=== PATIENT | male | born 1965 | race Caucasian/White ===

== ENCOUNTER 2017-09-04 08:54 | Inpatient (IN) | payer BC ==
--- NOTE | 2017-09-04 09:15 | ED ---
Psych HPI - General Chief Complaint: Psychiatric Symptoms Stated Complaint: Suicidal Time Seen by Provider: 09/04/17 09:03 Source: patient, RN notes reviewed, old records reviewed Mode of arrival: ambulatory - History of Present Illness Initial Comments: This is a 52-year-old male presents to the emergency department with suicidal ideation. Plans to jump out of his building or drugs car off the road or use a gun to shoot himself. Patient states that he got an argument with his boss which isn't resolved him losing his job. He has been dealing with depression and anxiety for the past 30 years. He reports that yesterday evening he was in his yard after a long day of work and after the argument with his boss and saw his stepson radiating in the tree. His stepson to commit suicide approximately 7 years ago. He also reports he has deep remorse because he was unable to be there when his father last year. He states that all these things combined been causing him to be more stressed and suicidal. He does have a family support system. He does take multiple medications including Lamictal and Seroquel and Celexa. He does see a psychiatrist Dr. Harding and a therapist to these been seen for the past 2 years. - Related Data Home Medications Medication Instructions Recorded Confirmed [place] Carbonate 1,200 mg PO HS 11/24/13 09/04/17 Citalopram Hydrobromide [CeleXA] 40 mg PO DAILY 09/04/17 09/04/17 QUEtiapine FUMARATE [SEROquel] 300 mg PO HS 09/04/17 09/04/17 QUEtiapine [SEROquel] 50 mg PO DAILY 09/04/17 09/04/17 lamoTRIgine [LaMICtal] 100 mg PO DAILY 09/04/17 09/04/17 Allergies Allergy/AdvReac Type Severity Reaction Status Date / Time No Known Allergies Allergy Verified 09/04/17 09:32 Review of Systems ROS Statement: Those systems with pertinent positive or pertinent negative responses have been documented in the HPI. ROS Other: All systems not noted in ROS Statement are negative. Past Medical History Past Medical History: COPD, Osteoarthritis (OA) Additional Past Medical History / Comment(s): 04/22/14 Pt presented to [facility] ER with c/o chest pain that felt like someone was standing on his chest and throat this AM. Pain radiated from mid chest up into neck. He felt like it was difficult to swallow. He took a co-workers NTG SL and pain went entirely away after about 15mins. He has had 3 previous episodes of this type pain this past month. He also stated that he came into [facility] for similiar problem one year ago but left before being worked up due to having missed his psych meds. 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 Past Anesthesia/Blood Transfusion Reactions: No Reported Reaction Past Psychological History: Bipolar Smoking Status: Current every day smoker Past Alcohol Use History: None Reported Past Drug Use History: Marijuana - Past Family History Father Family Medical History: Diabetes Mellitus, Myocardial Infarction ([place]), Renal Disease Additional Family Medical History / Comment(s): Father on dialysis. Mother Family Medical History: AFIB General Exam - General Exam Comments Initial Comments: 52-year-old male. Limitations: no limitations General appearance: alert, in no apparent distress Head exam: Present: atraumatic, normocephalic, normal inspection Eye exam: Present: normal appearance, PERRL, EOMI. Absent: scleral icterus, conjunctival injection, periorbital swelling ENT exam: Present: normal exam, mucous membranes moist Neck exam: Present: normal inspection. Absent: tenderness, meningismus, lymphadenopathy Respiratory exam: Present: normal lung sounds bilaterally. Absent: respiratory distress, wheezes, rales, rhonchi, stridor Cardiovascular Exam: Present: regular rate, normal rhythm, normal heart sounds. Absent: systolic murmur, diastolic murmur, rubs, gallop, clicks GI/Abdominal exam: Present: soft, normal bowel sounds. Absent: distended, tenderness, guarding, rebound, rigid Back exam: Present: normal inspection Neurological exam: Present: alert, oriented X3, CN II-XII intact Psychiatric exam: Present: depressed, suicidal ideation. Absent: normal affect , normal mood (Patient is tearful and depressed. States he is suicidal.) Skin exam: Present: warm, dry, intact, normal color. Absent: rash Course Vital Signs 09/04/17 08:57 Temperature 97.5 F L Pulse Rate 70 Respiratory 18 Rate Blood Pressure 144/85 O2 Sat by Pulse 100 Oximetry Medical Decision Making - Medical Decision Making 52 year-old male presents with suicidal ideations. Multiple plans including shooting self with gun. Worse after arguement with boss. Patient is medically clear this time for violation EPS. Evaluated by EPS and deemed that Patient will benefit from admission. Patient signs and voluntarily. I did order a lithium level. - Lab Data Result diagrams: 09/04/17 10:36 Lab Results 09/04/17 Range/Units 10:36 WBC 7.3 (3.8-10.6) k/uL RBC 4.33 (4.30-5.90) m/uL Hgb 13.5 (13.0-17.5) gm/dL Hct 39.6 (39.0-53.0) % MCV 91.6 (80.0-100.0) fL MCH 31.2 (25.0-35.0) pg MCHC 34.1 (31.0-37.0) g/dL RDW 12.6 (11.5-15.5) % Plt Count 230 (150-450) k/uL Disposition Clinical Impression: Depression, Suicidal ideation Disposition: TRANSFER TO PSYCH HOSP/UNIT Condition: Stable Is patient prescribed a controlled substance at d/c from ED?: No When asked, does pt state using other controlled substances?: No If prescribed controlled substance>3 days was MAPS reviewed?: No If opioid is for acute pain is fill amount 7 days or less?: No If Rx opioid, was Start Talking consent form obtained?: No Referrals: Micaela Bernardo MD [Primary Care Provider] - 1-2 days Time of Disposition: 10:52
[2017-09-04] MEDS ORDERED: NICOTINE 21MG/24HR PATCH TRANSDERM STA (09:25)
[2017-09-04 10:45] LABS: HCT 39.6 % (39.0-53.0); HGB 13.5 gm/dL (13.0-17.5); MCH 31.2 pg (25.0-35.0); MCHC 34.1 g/dL (31.0-37.0); MCV 91.6 fL (80.0-100.0); Mean Platelet Volume 7.1; Platelet Count 230 k/uL (150-450); RBC 4.33 m/uL (4.30-5.90); RDW 12.6 % (11.5-15.5); WBC 7.3 k/uL (3.8-10.6)
[2017-09-04 10:57] LABS: Calcium 9.6 mg/dL (8.4-10.2); Lithium 0.8 mmol/L; Potassium 4.2 mmol/L (3.5-5.1)
[2017-09-04 10:59] LABS: Amphetamine Screen,Urine Not Detected (NotDetected); Barbiturate Screen,Urine Not Detected (NotDetected); Benzodiazepines Screen,Urine Not Detected (NotDetected); Cocaine Screen,Urine Not Detected (NotDetected); Methadone Screen, Urine Not Detected (NotDetected); Opiate Screen,Urine Not Detected (NotDetected); Oxycodone Screen, Urine Not Detected (NotDetected); Phencyclidine Screen,Urine Not Detected (NotDetected); Tricyclic Antidepressant,Urine Detected (NotDetected); Urn Cannabinoid Scrn Detected (NotDetected)
[2017-09-04] MEDS ORDERED: MAGNESIUM HYDROXIDE 2,400 MG/10 ML CUP PO PRN (11:47)
[2017-09-04] MEDS ORDERED: MAG HYDROX/AL HYDROX/SIMETH 30 ML CUP PO PRN (11:47)
[2017-09-04] MEDS ORDERED: ZIPRASIDONE 20 MG VIAL IM PRN (11:47)
[2017-09-04] MEDS ORDERED: ACETAMINOPHEN TAB 325 MG TAB PO PRN (11:47)
[2017-09-04] MEDS: NICOTINE 21MG/24HR PATCH TRANSDERM SCH (14:12)
[2017-09-04] MEDS: lamoTRIgine 100 MG TAB PO SCH (14:12)
[2017-09-04] MEDS: CITALOPRAM HYDROBROMIDE 20 MG TAB PO SCH (14:12)
[2017-09-04] MEDS: QUEtiapine 100 MG TAB PO SCH (20:10)
[2017-09-04] MEDS: LITHIUM CARBONATE 300 MG CAP PO SCH (20:10)
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
[2017-09-05] MEDS: QUEtiapine 50 MG TAB PO SCH (08:36)
[2017-09-05] MEDS: lamoTRIgine 100 MG TAB PO SCH (08:36)
[2017-09-05] MEDS: CITALOPRAM HYDROBROMIDE 20 MG TAB PO SCH (08:36)
[2017-09-05] MEDS: NICOTINE 21MG/24HR PATCH TRANSDERM SCH (08:36)
[2017-09-05] MEDS ORDERED: CITALOPRAM HYDROBROMIDE 20 MG TAB PO SCH (09:00)
[2017-09-05 09:11] LABS: T4, Free (Free Thyroxine) 0.75 ng/dL (0.78-2.19)
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
[2017-09-05] MEDS: QUEtiapine 100 MG TAB PO SCH (21:11)
[2017-09-05] MEDS: LITHIUM CARBONATE 300 MG CAP PO SCH (21:11)
[2017-09-06] MEDS: LEVOTHYROXINE 25 MCG TAB PO SCH (06:22)
[2017-09-06] MEDS: NICOTINE 21MG/24HR PATCH TRANSDERM SCH (09:08)
[2017-09-06] MEDS: CITALOPRAM HYDROBROMIDE 20 MG TAB PO SCH (09:08)
[2017-09-06] MEDS: lamoTRIgine 100 MG TAB PO SCH (09:08)
[2017-09-06] MEDS: QUEtiapine 50 MG TAB PO SCH (09:08)
--- NOTE | 2017-09-06 10:57 | P.PN ---
Progress Note - Text Interval history: The patient is found in group he follows me to an interview room. He reports his mood is much improved. He was able to sleep throughout the night. Appetite is stable he is attending groups. He states that he has a new perspective on things as several people here have much worse than him. Social work was able to contact his . She provided collateral information. The patient does not wish to change his psychotropic medication. He was placed on Synthroid 25 g daily due to the elevated TSH and low free T4. Mental status exam: The patient is a tall male appearing his stated age. He is pleasant and cooperative. He states his mood is much improved. He is reporting no hopelessness thinking no suicidal or homicidal ideation intent or plan. He is endorsing no auditory or visual hallucinations or any specific delusions. Thought process is linear he demonstrates no tangential thinking loose associations or flight of ideas. He does not appear hypomanic or manic. He demonstrates no abnormal involuntary movements he demonstrates no verbal or physical aggressiveness. He remains oriented to person place and date. Affect is appropriately expressive any peer's euthymic. Plan: The patient will continue on his current medications. We discussed Depakote as an alternative to lithium but he would prefer to manage this with his outpatient psychiatrist. He is hoping to reengage in outpatient therapy as well. Social work will arrange a support meeting. If he remains clinically stable and there is no perceived acute safety risk we will consider discharging him tomorrow.
[2017-09-06] MEDS: QUEtiapine 100 MG TAB PO SCH (21:34)
[2017-09-06] MEDS: LITHIUM CARBONATE 300 MG CAP PO SCH (21:34)
[2017-09-07] MEDS: LEVOTHYROXINE 25 MCG TAB PO SCH (05:48)
[2017-09-07 06:38] VITALS: BP 132/77; PULSE 58; RESP 20; TEMP 97.9
[2017-09-07] MEDS: NICOTINE 21MG/24HR PATCH TRANSDERM SCH (09:08)
[2017-09-07] MEDS: QUEtiapine 50 MG TAB PO SCH (09:08)
[2017-09-07] MEDS: CITALOPRAM HYDROBROMIDE 20 MG TAB PO SCH (09:08)
[2017-09-07] MEDS: lamoTRIgine 100 MG TAB PO SCH (09:08)
--- NOTE | 2017-09-07 11:40 | P.DS ---
Providers Date of admission: 09/04/17 10:56 Expected date of discharge: 09/07/17 Attending physician: Jeanmarie Reeves Consults: 09/04/17 11:47 Consult Physician Routine Consulting Provider: Bailey Be Consult Reason/Comments: H & P and medical care Do you want consulting provider notified?: Yes Primary care physician: Micaela Bernardo - Discharge Diagnosis(es) (1) Depression Current Visit: Yes Status: Acute Priority: High (2) Cannabis use disorder, moderate, dependence Current Visit: Yes Status: Acute Priority: Medium Hospital Course: Brief summary of admission note: This patient is a 52-year-old male who was admitted to the mental health unit through the emergency room for acute suicidal ideation. The patient had presented with a plan of shooting himself or driving his vehicle into a tree. It appears that prior to this admission he had had a verbal altercation again with his boss. The patient feels as though he is being treated unfairly at work and left. He reported feeling hopeless and acutely depressed and then will live anymore. He described having to continue processing several losses including a stepson 7 years ago the loss of a good friend and his father 1 year ago. For full details please refer to my psychiatric evaluation dated 09/05/2017. Summary of hospital course: The patient was admitted to the mental health unit voluntarily. We reviewed his presenting symptoms and medication options. The patient stated that he felt very comfortable with his outpatient psychiatrist prescribing his medicine and he did not want his psychotropic medication changed while here. He was continued on Celexa Lamictal lithium and Seroquel as written by Dr. Harding. With lab work the lithium level was 0.8, his kidney function was normal however his thyroid function was found to be abnormally low. Specifically his free T4 was low and his TSH was high. Internal medicine saw the patient for routine history and physical exam and they initiated Synthroid 25 g daily. The patient indicated that he was experiencing some clinical signs of hypothyroidism most notably constipation. We discussed Depakote as an alternative to lithium for stabilization of mood but he prefers to address this with Dr. Harding. The patient attended groups he was cooperative and pleasant he demonstrated no agitated behavior. Social work did make contact with the patient's via phone. She confirmed that the firearms were removed from the home. The patient states that he voluntarily had his friend remove those even prior to coming to the hospital. Mental status exam: The patient is a tall thin male. He wears a rojas. He is dressed in his own clothing. He is pleasant and cooperative during the session. He reports a complete resolution of any suicidal ideation. He states he has no suicidal or homicidal ideation intent or plan. He reports he no longer feels hopeless. He is decided that he will be off of work for 2 weeks and then he will return on a trial basis. He is reporting no auditory or visual hallucinations he is reporting no specific delusions there is no observed evidence of psychosis. He does not appear hypomanic or manic at this time or at any time during the hospitalization. Thought process is linear he demonstrates no tangential thinking loose associations or flight of ideas. Insight and judgment grossly intact. He is oriented to person place and date. He demonstrates no verbal or physical aggressiveness he demonstrates no abnormal involuntary movements. He demonstrates future oriented thinking and is motivated for discharge today. Impressions 1. Depression unspecified rule out bipolar depression, rule out major depressive disorder, cannabis use disorder 2. Ongoing grief and loss, work related stressors Plan: The patient will be discharged home today from the mental health unit. Social work will confirm his appointments with his therapist and psychiatrist at [facility]. He will continue on Celexa 40 mg daily Lamictal 100 mg daily Synthroid 25 g daily lithium 1200 mg at bedtime Seroquel 50 mg daily 300 mg at bedtime. He will discussed Depakote as an alternative to lithium with his outpatient psychiatrist. It is likely that the Depakote could replace the lithium and the Lamictal if it demonstrated appropriate efficacy. It is likely he would no longer need the Synthroid if the lithium is discontinued but he is encouraged to have that monitored with blood work and consult with either Dr. Harding or his primary care physician on that matter. He is instructed to abstain from any use of marijuana he does not wish to participate in any formal treatment for his marijuana use. He can address this further with his outpatient mental health clinicians. There is no imminent safety risk he is appropriate for transition back to outpatient care. He is instructed to return to the hospital with any acute safety issues. Patient Condition at Discharge: Stable Plan - Discharge Summary Discharge Rx Participant: No New Discharge Prescriptions: New Levothyroxine Sodium [Synthroid] 25 mcg PO DAILY@0630 #30 tab Nicotine 21Mg/24Hr Patch [Habitrol] 1 patch TRANSDERM DAILY #10 patch Continue Citalopram Hydrobromide [CeleXA] 40 mg PO DAILY #30 tablet lamoTRIgine [LaMICtal] 100 mg PO DAILY #30 tab [place] Carbonate 1,200 mg PO HS #60 cap QUEtiapine [SEROquel] 50 mg PO DAILY #30 tab QUEtiapine FUMARATE [SEROquel] 300 mg PO HS #30 tablet Discharge Medication List Citalopram Hydrobromide [CeleXA] 40 mg PO DAILY #30 tablet 09/07/17 [Rx] Levothyroxine Sodium [Synthroid] 25 mcg PO DAILY@0630 #30 tab 09/07/17 [Rx] [place] Carbonate 1,200 mg PO HS #60 cap 09/07/17 [Rx] Nicotine 21Mg/24Hr Patch [Habitrol] 1 patch TRANSDERM DAILY #10 patch 09/07/17 [ Rx] QUEtiapine FUMARATE [SEROquel] 300 mg PO HS #30 tablet 09/07/17 [Rx] QUEtiapine [SEROquel] 50 mg PO DAILY #30 tab 09/07/17 [Rx] lamoTRIgine [LaMICtal] 100 mg PO DAILY #30 tab 09/07/17 [Rx] Follow up Appointment(s)/Referral(s): Micaela Bernardo MD [Primary Care Provider] - 1-2 days
== END 2017-09-07 14:01 | disposition home or self-care (01) | DRG 881 ==
LOC: EC 08:54 → 3MHU 10:56
PROVIDERS: ADMIT Psychiatry & Neurology Psychiatry; ATTEND Psychiatry & Neurology Psychiatry
DX: F32.9 Major depressive disorder, single episode, unspecified (principal); R45.851 Suicidal ideations; F12.20 Cannabis dependence, uncomplicated; F17.210 Nicotine dependence, cigarettes, uncomplicated; F41.9 Anxiety disorder, unspecified; J44.9 Chronic obstructive pulmonary disease, unspecified; M19.90 Unspecified osteoarthritis, unspecified site; Z79.899 Other long term (current) drug therapy; Z91.5 Personal history of self-harm; Z90.49 Acquired absence of other specified parts of digestive tract; Z62.810 Personal history of physical and sexual abuse in childhood; F43.21 Adjustment disorder with depressed mood; Z83.3 Family history of diabetes mellitus; Z82.49 Family history of ischemic heart disease and other diseases of the circulatory system; Z84.1 Family history of disorders of kidney and ureter
CPT/HCPCS: 36415; 80048; 80178; 80306; 82075; 84439; 84443; 85027; 99285

== ENCOUNTER 2017-12-21 07:00 | Emergency (ER) | payer BC ==
[2017-12-21 07:06] VITALS: PULSE 67; TEMP 98.9
--- NOTE | 2017-12-21 07:43 | ED ---
Psych HPI - General Chief Complaint: Psychiatric Symptoms Stated Complaint: Mental Health Time Seen by Provider: 12/21/17 07:20 Source: patient, RN notes reviewed Mode of arrival: ambulatory - History of Present Illness Initial Comments: This is a 52-year-old male with a long history of bipolar disorder also history of borderline personality disorder who states for past week or so he still very depressed and suicidal in spite of taking his medications. He had thought of cutting one of his arteries in his groin or possibly jumping of his dear stand or radiated into a truck with his car 100 miles an hour. Nothing in particular other than "life" has set this off. He states he has been taking his medications as directed MD Complaint: suicidal ideation, feels depressed - Related Data Home Medications Medication Instructions Recorded Confirmed lamoTRIgine [LaMICtal] 100 mg PO HS 12/21/17 12/21/17 Previous Rx's Medication Instructions Recorded Citalopram Hydrobromide [CeleXA] 40 mg PO DAILY #30 tablet 09/07/17 [place] Carbonate 1,200 mg PO HS #60 cap 09/07/17 QUEtiapine FUMARATE [SEROquel] 300 mg PO HS #30 tablet 09/07/17 QUEtiapine [SEROquel] 50 mg PO DAILY #30 tab 09/07/17 Allergies Allergy/AdvReac Type Severity Reaction Status Date / Time No Known Allergies Allergy Verified 12/21/17 08:16 Review of Systems ROS Statement: Those systems with pertinent positive or pertinent negative responses have been documented in the HPI. ROS Other: All systems not noted in ROS Statement are negative. Past Medical History Past Medical History: COPD, Osteoarthritis (OA) Additional Past Medical History / Comment(s): Arthritis multiple joints, recent cortisone injections in R elbow, occasional back pain. 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 Past Anesthesia/Blood Transfusion Reactions: No Reported Reaction Past Psychological History: Bipolar Smoking Status: Never smoker Past Alcohol Use History: None Reported Past Drug Use History: Marijuana - Past Family History Father Family Medical History: Diabetes Mellitus, Myocardial Infarction (PA), Renal Disease Additional Family Medical History / Comment(s): Father is at the age of 80yrs. He had to have dialysis. He had a PA at the age of 30yrs. Mother Family Medical History: AFIB, Diabetes Mellitus, Hypertension Additional Family Medical History / Comment(s): Mother is about 75 or 76yrs old. General Exam - General Exam Comments Initial Comments: This is a well-developed well-nourished awake alert oriented 3 male Limitations: no limitations General appearance: alert, in no apparent distress Head exam: Present: atraumatic, normocephalic, normal inspection Eye exam: Present: normal appearance, PERRL, EOMI. Absent: scleral icterus, conjunctival injection, periorbital swelling ENT exam: Present: normal exam, mucous membranes moist Neck exam: Present: normal inspection. Absent: tenderness, meningismus, lymphadenopathy Respiratory exam: Present: normal lung sounds bilaterally. Absent: respiratory distress, wheezes, rales, rhonchi, stridor Cardiovascular Exam: Present: regular rate, normal rhythm, normal heart sounds. Absent: systolic murmur, diastolic murmur, rubs, gallop, clicks GI/Abdominal exam: Present: soft, normal bowel sounds. Absent: distended, tenderness, guarding, rebound, rigid Extremities exam: Present: normal inspection, full ROM, normal capillary refill. Absent: tenderness, pedal edema, joint swelling, calf tenderness Back exam: Present: normal inspection Neurological exam: Present: alert, oriented X3, CN II-XII intact Psychiatric exam: Present: depressed, flat affect, suicidal ideation Skin exam: Present: warm, dry, intact, normal color. Absent: rash Course Vital Signs 12/21/17 12/21/17 07:02 15:00 Temperature 98.9 F Pulse Rate 67 67 Respiratory 16 18 Rate Blood Pressure 144/84 144/85 O2 Sat by Pulse 99 99 Oximetry Medical Decision Making - Medical Decision Making The patient was evaluated by psychiatric service he was petitioned and I did to his certification. Patient was be transferred to [facility]. I did also did order sedation for the patient she was becoming very irate and threatening. - Lab Data Lab Results 12/21/17 12/21/17 Range/Units 08:20 08:20 Urine Opiates Screen Not Detected (NotDetected) Ur Oxycodone Screen Not Detected (NotDetected) Urine Methadone Screen Not Detected (NotDetected) Ur Propoxyphene Screen Not Detected (NotDetected) Ur Barbiturates Screen Not Detected (NotDetected) U Tricyclic Antidepress Detected H (NotDetected) Ur Phencyclidine Scrn Not Detected (NotDetected) Ur Amphetamines Screen Not Detected (NotDetected) U Methamphetamines Scrn Not Detected (NotDetected) U Benzodiazepines Scrn Not Detected (NotDetected) [place] 1.1 mmol/L Urine Cocaine Screen Not Detected (NotDetected) U Marijuana (THC) Screen Detected H (NotDetected) Disposition Clinical Impression: Depression, Suicidal ideation Disposition: TRANSFER TO PSYCH HOSP/UNIT Condition: Stable Is patient prescribed a controlled substance at d/c from ED?: No Referrals: Micaela Bernardo MD [Primary Care Provider] - 1-2 days
[2017-12-21 08:50] LABS: Amphetamine Screen,Urine Not Detected (NotDetected); Barbiturate Screen,Urine Not Detected (NotDetected); Benzodiazepines Screen,Urine Not Detected (NotDetected); Cocaine Screen,Urine Not Detected (NotDetected); Methadone Screen, Urine Not Detected (NotDetected); Opiate Screen,Urine Not Detected (NotDetected); Oxycodone Screen, Urine Not Detected (NotDetected); Phencyclidine Screen,Urine Not Detected (NotDetected); Tricyclic Antidepressant,Urine Detected (NotDetected); Urn Cannabinoid Scrn Detected (NotDetected)
[2017-12-21] MEDS ORDERED: ZIPRASIDONE 20 MG VIAL IM STA (14:27)
[2017-12-21] MEDS ORDERED: LORazepam 2 MG/ML INJ IM STA (14:28)
[2017-12-21] MEDS ORDERED: CITALOPRAM HYDROBROMIDE 20 MG TAB PO STA (14:35)
[2017-12-21] MEDS ORDERED: QUEtiapine 50 MG TAB PO STA (14:35)
[2017-12-21] MEDS ORDERED: lamoTRIgine 100 MG TAB PO STA (14:58)
[2017-12-21 15:00] VITALS: RESP 18
[2017-12-21 19:27] VITALS: BP 141/94
== END 2017-12-21 19:27 ==
LOC: EC 07:00
DX: F32.9 Major depressive disorder, single episode, unspecified (principal); R45.851 Suicidal ideations; F60.3 Borderline personality disorder; Z79.899 Other long term (current) drug therapy
CPT/HCPCS: 36415; 80178; 80306; 99285; 96372 ×2; J2060; J3486; 82075

== ENCOUNTER → 2018-06-04 | Outpatient (CLI) | payer OTHER ==
[2018-06-04 12:52] LABS: T4, Free (Free Thyroxine) 0.21 ng/dL (0.78-2.19)
== END | disposition home or self-care (01) ==
LOC: LABWHC1 11:40
PROVIDERS: ATTEND Internal Medicine
DX: E03.9 Hypothyroidism, unspecified (principal)
CPT/HCPCS: 36415; 84439; 84443

== ENCOUNTER → 2023-01-23 | Outpatient (CLI) | payer OTHER ==
--- NOTE | 2023-01-23 10:10 | MR ---
EXAMINATION TYPE: MR brain wo/w con DATE OF EXAM: 01/23/2023 COMPARISON: None HISTORY: Headaches TECHNIQUE: Multiplanar, multisequence images of the brain and brainstem is performed without and with IV contras t, utilizing 9 mL intravenous Gadavist . FINDINGS: Diffusion weighted images demonstrate no evidence of a recent infarct or other diffusion ab normality. There is I moderate degenerative change with numerous small focal areas of abnormal signal scattered throughout the white matter of bilateral cerebral hemispheres. Findings nonspecific but most typical remote white matter microvascular disease. Vertebrobasilar system is diminutive in size which can be associated with vertebrobasilar insufficiency. Posterior cerebral arteries likely originate from the anterior circulation. Midline structures demonstrate normal morphology. Low-lying cerebellar tonsils at the level of forame n magnum. No tonsillar beaking.. Post contrast images demonstrate no abnormal enhancement. The dural venous sinuses appear patent. Chronic sinusitis and the globes are intact. IMPRESSION: 1. Moderate degenerative and nonspecific white matter findings most typical of remote microvascular i schemic white matter change. 2. Mild chronic sinusitis. 3. Low-lying cerebellar tonsils at the level of foramen magnum, without evidence of tonsillar beaking or definitive Chiari malformation.
[2023-01-23 10:33] LABS: African American GFR (CKD) 52 (>60 ml/min/1.73 sqM); Albumin 4.4 g/dL (3.5-5.0); Anion Gap 8 mmol/L; Blood Urea Nitrogen 18 mg/dL (9-20); Calcium 9.8 mg/dL (8.4-10.2); Carbon Dioxide 25 mmol/L (22-30); Chloride 107 mmol/L (98-107); Glucose 87 mg/dL (74-99); Non-African American GFR(CKD) 45 (>60 ml/min/1.73 sqM); Phosphorus 3.3 mg/dL (2.5-4.5); Potassium 4.5 mmol/L (3.5-5.1); Sodium 140 mmol/L (137-145)
== END | disposition home or self-care (01) ==
LOC: RADMRIMAIN 08:31
PROVIDERS: ATTEND Internal Medicine
DX: R90.82 White matter disease, unspecified (principal); G93.89 Other specified disorders of brain; J32.9 Chronic sinusitis, unspecified; I67.82 Cerebral ischemia; R51.9 Headache, unspecified; G93.5 Compression of brain; N18.31 Chronic kidney disease, stage 3a
CPT/HCPCS: 80069; 70553; A9585

== ENCOUNTER → 2023-03-23 | Outpatient (CLI) | payer OTHER, MEDICARE ==
--- NOTE | 2023-03-23 12:18 | CT ---
EXAMINATION TYPE: CT sinus wo con DATE OF EXAM: 03/23/2023 COMPARISON: MRI brain January 23, 2023 HISTORY: maxillary sinusitis CT DLP: 636.4 mGycm. Automated Exposure Control for Dose Reduction was Utilized. TECHNIQUE: CT scan of the sinuses is performed without contrast, axial images are obtained, coronal r eformatted images are also reviewed. FINDINGS: The paranasal sinuses including the frontal, ethmoid, sphenoid, and maxillary sinuses bila terally remain well-aerated without abnormal opacification or suspicious air-fluid levels. The ostio meatal complex is patent bilaterally on the coronal images. Nasal septum is noted deviated slightly r ight of midline. Visualized portion of mastoid air cells show no abnormal opacification. There is soft tissue density suspicious for cerumen in the bilateral external auditory canals noted. The globes are intact bilate rally. Visualized brain parenchyma shows mild diffuse cerebral atrophy and chronic small vessel ische kelly change. Low-lying cerebellar tonsils redemonstrated. IMPRESSION: The sinuses remain clear and the ostiomeatal complex is patent bilaterally.
== END | disposition home or self-care (01) ==
LOC: RADCTMAIN 11:24
PROVIDERS: ATTEND Otolaryngology
DX: J32.0 Chronic maxillary sinusitis (principal)
CPT/HCPCS: 70486

== ENCOUNTER 2023-04-17 17:30 | Observation (INO) | payer OTHER, MEDICARE ==
--- NOTE | 2023-04-17 18:08 | XR ---
EXAMINATION TYPE: XR chest 2V DATE OF EXAM: 04/17/2023 COMPARISON: 04/22/2014 HISTORY: 57-year-old male with chest pain TECHNIQUE: PA and lateral views FINDINGS: The cardiomediastinal silhouette, aorta, and pulmonary vasculature are within normal limits. Mild hyp erinflation. Lungs and pleural spaces are clear. IMPRESSION: Mild hyperinflation may relate to depth of inspiration or underlying emphysema. Otherwise, no acute p rocess seen.
[2023-04-17 18:12] LABS: Basophils # (A) 0.1 k/uL (0-0.2); Basophils % (A) 1 %; Eosinophils # (A) 0.2 k/uL (0-0.7); Eosinophils % (A) 2 %; HCT 41.5 % (39.0-53.0); HGB 14.3 gm/dL (13.0-17.5); Lymphocytes # (A) 3.2 k/uL (1.0-4.8); Lymphocytes % (A) 36 %; MCH 32.3 pg (25.0-35.0); MCHC 34.6 g/dL (31.0-37.0); MCV 93.5 fL (80.0-100.0); Mean Platelet Volume 7.5; Monocytes # (A) 0.4 k/uL (0-1.0); Monocytes % (A) 4 %; Neutrophils # (A) 4.9 k/uL (1.3-7.7); Neutrophils % (A) 56 %; Platelet Count 251 k/uL (150-450); RBC 4.44 m/uL (4.30-5.90); RDW 12.1 % (11.5-15.5); WBC 8.8 k/uL (3.8-10.6)
[2023-04-17 18:17] LABS: INR 1.1 (<1.2); Partial Thromboplastin Time 25.4 sec (22.0-30.0); Prothrombin Time 11.6 sec (10.0-12.5)
[2023-04-17 18:20] LABS: ALT 16 U/L (4-49); AST 19 U/L (17-59); African American GFR (CKD) 52 (>60 ml/min/1.73 sqM); Albumin 4.2 g/dL (3.5-5.0); Alkaline Phosphatase 75 U/L (38-126); Anion Gap 8 mmol/L; Blood Urea Nitrogen 17 mg/dL (9-20); Calcium 9.1 mg/dL (8.4-10.2); Carbon Dioxide 23 mmol/L (22-30); Chloride 105 mmol/L (98-107); Glucose 131 mg/dL (74-99); Magnesium 1.9 mg/dL (1.6-2.3); Non-African American GFR(CKD) 45 (>60 ml/min/1.73 sqM); Sodium 136 mmol/L (137-145); Total Bilirubin 0.3 mg/dL (0.2-1.3); Total Protein 6.9 g/dL (6.3-8.2)
[2023-04-17] MEDS ORDERED: ONDANSETRON 4 MG/2 ML VIAL IVP PRN (20:21)
[2023-04-17] MEDS ORDERED: ASPIRIN 81 MG PO STA (20:21)
[2023-04-17] MEDS ORDERED: NITROGLYCERIN SL TABS 0.4 MG TAB SUBLINGUAL PRN (20:21)
[2023-04-17] MEDS ORDERED: NALOXONE 0.4 MG/ML 1 ML VIAL IV PRN (20:21)
[2023-04-17] MEDS ORDERED: MORPHINE SULFATE 4 MG/ML SYRINGE IV PRN (20:21)
--- NOTE | 2023-04-17 20:27 | ED ---
Chest Pain HPI - General Chief Complaint: Chest Pain Stated Complaint: Abn EKG Time Seen by Provider: 04/17/23 17:56 Source: patient, family, RN notes reviewed, old records reviewed Mode of arrival: ambulatory Limitations: no limitations - History of Present Illness Initial Comments: This is a 57-year-old male to the ER for evaluation today. Patient presents today for evaluation of chest pain this patient presents today for chest pain with history of high cholesterol family history of heart disease and long history of smoking. Patient was sent in for abnormal EKG changes he went to his primary care's office in regards to his chest pain and was told he had an abnormal EKG MD Complaint: chest pain -: hour(s) Onset: during rest, during exertion Pain Location: substernal, left chest Pain Radiation: none Severity: moderate Severity scale (1-10): 5 Quality: tightness, aching, heaviness Consistency: intermittent Improves With: nothing Worsens With: nothing Anginal Symptoms: dyspnea, sense of impending doom Other Symptoms: palpitations - Related Data Home Medications Medication Instructions Recorded Confirmed lamoTRIgine [LaMICtal] 100 mg PO HS 12/21/17 04/17/23 Atorvastatin [Lipitor] 20 mg PO DAILY 04/17/23 04/17/23 Citalopram Hydrobromide [CeleXA] 20 mg PO HS 04/17/23 04/17/23 LORazepam [Ativan] 0.5 mg PO BID PRN 04/17/23 04/17/23 LORazepam [Ativan] 0.5 mg PO HS 04/17/23 04/17/23 Levothyroxine Sodium [Synthroid] 125 mcg PO DAILY 04/17/23 04/17/23 [place] Carbonate 300 mg PO HS 04/17/23 04/17/23 QUEtiapine [SEROquel] 400 mg PO HS 04/17/23 04/17/23 SUMAtriptan succinate [Imitrex] 100 mg PO BID PRN 04/17/23 04/17/23 Allergies Allergy/AdvReac Type Severity Reaction Status Date / Time No Known Allergies Allergy Verified 04/17/23 20:06 Review of Systems ROS Statement: Those systems with pertinent positive or pertinent negative responses have been documented in the HPI. ROS Other: All systems not noted in ROS Statement are negative. Past Medical History Past Medical History: COPD, Osteoarthritis (OA) Additional Past Medical History / Comment(s): Arthritis multiple joints, recent cortisone injections in R elbow, occasional back pain. 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 Past Anesthesia/Blood Transfusion Reactions: No Reported Reaction Past Psychological History: Bipolar Past Alcohol Use History: None Reported Past Drug Use History: Marijuana - Past Family History Father Family Medical History: Diabetes Mellitus, Myocardial Infarction (MS), Renal Disease Additional Family Medical History / Comment(s): Father is at the age of 80yrs. He had to have dialysis. He had a MS at the age of 30yrs. Mother Family Medical History: AFIB, Diabetes Mellitus, Hypertension Additional Family Medical History / Comment(s): Mother is about 75 or 76yrs old. General Exam Limitations: no limitations General appearance: alert, in no apparent distress Head exam: Present: atraumatic, normocephalic, normal inspection Eye exam: Present: normal appearance, PERRL, EOMI. Absent: scleral icterus, conjunctival injection, periorbital swelling ENT exam: Present: normal exam, mucous membranes moist Neck exam: Present: normal inspection. Absent: tenderness, meningismus, lymphadenopathy Respiratory exam: Present: normal lung sounds bilaterally. Absent: respiratory distress, wheezes, rales, rhonchi, stridor Cardiovascular Exam: Present: regular rate, normal rhythm, normal heart sounds. Absent: systolic murmur, diastolic murmur, rubs, gallop, clicks GI/Abdominal exam: Present: soft, normal bowel sounds. Absent: distended, tenderness, guarding, rebound, rigid Extremities exam: Present: normal inspection, full ROM, normal capillary refill. Absent: tenderness, pedal edema, joint swelling, calf tenderness Back exam: Present: normal inspection Neurological exam: Present: alert, oriented X3, CN II-XII intact Psychiatric exam: Present: normal affect, normal mood Skin exam: Present: warm, dry, intact, normal color. Absent: rash Course Vital Signs 04/17/23 04/17/23 04/17/23 17:36 18:15 19:50 Temperature 98 F 98.3 F Pulse Rate 76 72 54 L Respiratory 16 17 18 Rate Blood Pressure 120/76 121/84 127/93 O2 Sat by Pulse 99 97 97 Oximetry - Reevaluation(s) Reevaluation #1: 04/17/23 20:25 Medical record is reviewed Reevaluation #2: 04/17/23 20:25 Patient still with chest pain here in the emergency department it is interm ittent but currently he does have chest pain Reevaluation #3: 04/17/23 20:26 Patient informed of results questions answered Reevaluation #4: 04/17/23 20:26 Was pt. sent in by a medical professional or institution (, [facility], [facility], urgent care, hospital, or halfway...) When possible be specific @ -no Did you speak to anyone other than the patient for history (EMS, parent, family, police, friend...)? What history was obtained from this source @ -no Did you review nursing and triage notes (agree or disagree)? Why? @ -agree Are old charts reviewed (outside hosp., previous admission, EMS record, old EKG, old radiological studies, urgent care reports/EKG's, halfway records)? Report findings @ -yes Differential Diagnosis (chest pain, altered mental status, abdominal pain women, abdominal pain men, vaginal bleeding, weakness, fever, dyspnea, syncope, headache, dizziness, GI bleed, back pain, seizure, CVA, palpatations, mental health, musculoskeletal)? @ -prior EKG interpreted by me (3pts min.). @ -yes X-rays interpreted by me (1pt min.). @ -yes negative for acute disease CT interpreted by me (1pt min.). @ -no U/S interpreted by me (1pt. min.). @ -no What testing was considered but not performed or refused? (CT, X-rays, U/S, labs)? Why? @ -none What meds were considered but not given or refused? Why? @ -none Did you discuss the management of the patient with other professionals (professionals i.e. CELE Torres, [facility], lab, RT, psych nurse, social insurance administrator, solid waste disposal manager, teacher, mail officer, casey saw operator)? Give summary @ -no Was smoking cessation discussed for >3mins.? @ -no Was critical care preformed (if so, how long)? @ -no Were there social determinants of health that impacted care today? How? (Homelessness, low income, unemployed, alcoholism, drug addiction, transportation, low edu. Level, literacy, decrease access to med. care, fdc, rehab)? @ -none Was there de-escalation of care discussed even if they declined (Discuss DNR or withdrawal of care, Hospice)? DNR status @ -no What co-morbidities impacted this encounter? (DM, HTN, Smoking, COPD, CAD, Cancer, CVA, ARF, Chemo, Hep., AIDS, mental health diagnosis, sleep apnea, morbid obesity)? @ -none Was patient admitted / discharged? Hospital course, mention meds given and route, prescriptions, significant lab abnormalities, going to OR and other pertinent info. @ - Undiagnosed new problem with uncertain prognosis? @ -no Drug Therapy requiring intensive monitoring for toxicity (Heparin, Nitro, Insulin, Cardizem)? @ -no Were any procedures done? @ -no Diagnosis/symptom? @ - Acute, or Chronic, or Acute on Chronic? @ -Acute Uncomplicated (without systemic symptoms) or Complicated (systemic symptoms)? @ -Complicated Side effects of treatment? @ -no Exacerbation, Progression, or Severe Exacerbation? @ -exacerbation Poses a threat to life or bodily function? How? (Chest pain, [place], MS, pneumonia, PE, COPD, DKA, ARF, appy, cholecystitis, CVA, Diverticulitis, Homicidal, Suicidal, threat to staff... and all critical care pts) @ -yes Reevaluation #5: 04/17/23 20:26 Differential Chest Pain: Stable Angina, Unstable Angina, STEMI, NSTEMI Aortic Dissection, Pneumothorax, Musculoskeletal, Esophageal Spasm GERD, Cholecystitis, Pancreatitis, Zoster, this is not meant to be an all-inclusive list. - Consultations Consultation #1: Spoke with [facility] who agrees to admit this patient Chest Pain MDM - MDM 57 male to ER for evaluation patient will be admitted for chest pain observation with history of smoking high cholesterol and family history of heart disease, persistent chest pain here in the ER Disposition Clinical Impression: Chest pain Disposition: ADMITTED IP TO THIS HOSP Condition: Undetermined Is patient prescribed a controlled substance at d/c from ED?: No Referrals: Micaela Bernardo MD [Primary Care Provider] - 1-2 days Time of Disposition: 20:35
[2023-04-17] MEDS ORDERED: SUMAtriptan succinate 50 MG TAB PO PRN (20:51)
[2023-04-17] MEDS ORDERED: LORazepam 0.5 MG TAB PO PRN (20:51)
[2023-04-17] MEDS ORDERED: CITALOPRAM HYDROBROMIDE 20 MG TAB PO SCH (21:00)
[2023-04-17] MEDS ORDERED: QUEtiapine 400 MG TAB PO SCH (21:00)
[2023-04-17] MEDS ORDERED: lamoTRIgine 100 MG TAB PO SCH (21:00)
[2023-04-17] MEDS ORDERED: LITHIUM CARBONATE 300 MG CAP PO SCH (21:00)
[2023-04-17] MEDS: SODIUM CHLORIDE 0.9% 1,000 ML IV SCH (21:13)
[2023-04-17 23:41] VITALS: TEMP 97.6
[2023-04-18] MEDS ORDERED: LEVOTHYROXINE 125 MCG TAB PO SCH (06:30)
[2023-04-18 08:55] LABS: Chol/HDL Ratio 4.24 Ratio; VLDL Calculation 13.24 mg/dL (5.00-40.00)
[2023-04-18] MEDS ORDERED: ATORVASTATIN 20 MG TAB PO SCH (09:00)
[2023-04-18] MEDS ORDERED: ASPIRIN 325 MG TAB PO SCH (09:00)
[2023-04-18] MEDS ORDERED: CALCIUM CARBONATE 500 MG CHEWABLE PO PRN (09:26)
[2023-04-18] MEDS ORDERED: ACETAMINOPHEN TAB 325 MG TAB PO PRN (09:26)
--- NOTE | 2023-04-18 09:28 | P.CRDCN ---
History of Present Illness History of present illness: HISTORY OF PRESENT ILLNESS: This is a 57-year-old male with a past medical history significant for hyperlipidemia, bipolar disorder, nicotine dependence, and marijuana use. Patient does not follow with a guardian ad litem. We have been asked to see the patient in consultation for chest pain. Patient examined at the bedside in the emergency room. Patient reports that he started having chest pain yesterday while at rest. He states it felt extremity was stabbing him in the chest and through his back. He states the pain went down his left arm as well. He states the pain resolved on its own. He does report he has been having this type of chest pain for the past few months intermittently. He denies any chest pain or pressure at the time of examination. Denies any shortness of breath. DIAGNOSTICS: - EKG reveals sinus mechanism with no signs of acute ischemia - Chest xray mild hyperinflation may relate to the depth of inspiration or underlying emphysema. Otherwise no acute process seen.. - Laboratory data: WBC 8.8. Hemoglobin 14.3. Platelet count 251. Sodium 136. Potassium 4.0. BUN 17. Creatinine 1.67. Magnesium 1.9. Troponin negative x 3 - Current home cardiac medications include Lipitor 20 mg daily. - Most recent echocardiogram obtained in April 2014 revealed ejection fraction 55 to 60%, trace MR, trace TR - Cardiac catheterization history: 2015 revealing normal coronaries with mild irregularities in the distal left anterior descending coronary artery with mildly compromised left ventricular function. REVIEW OF SYSTEMS: At the time of my exam: CONSTITUTIONAL: Denies fever or chills. HEENT: Denies blurred vision, vision changes, or eye pain. Denies hemoptysis CARDIOVASCULAR: Denies chest pain. Denies orthopnea. Denies PND. Denies palpitations RESPIRATORY: Denies shortness of breath. GASTROINTESTINAL: Denies abdominal pain. Denies nausea or vomiting. HEMATOLOGIC: Denies bleeding disorders. GENITOURINARY: Denies any blood in urine. SKIN: Denies pruitis. Denies rash. PHYSICAL EXAM: VITAL SIGNS: Reviewed. GENERAL: Well-developed in no acute distress. HEENT: Head is normocephalic. Pupils are equal, round. Sclerae anicteric. Mucous membranes of the mouth are moist. Neck supple. No JVD or thyromegaly LUNGS: Respirations even and unlabored. Lungs essentially clear to auscultation bilaterally. HEART: Regular rate and rhythm. S1 and S2 heard. ABDOMEN: Soft. Nondistended. Nontender. EXTREMITIES: Normal range of motion. No clubbing or cyanosis. Peripheral pulses intact. No lower extremity edema NEUROLOGIC: Awake and alert. Oriented x 3. ASSESSMENT: Chest pain, troponin negative x 3 Normal coronary arteries, per cardiac catheterization 2014 Hyperlipidemia Chronic kidney disease History of bipolar disorder Nicotine dependence Marijuana use PLAN: An acute coronary and has been ruled out Obtain 2D echo to assess cardiac structure and function Abstinence from marijuana recommended Smoking cessation encouraged Patient to undergo stress echocardiogram today If negative, the patient may be discharged home today from a cardiac standpoint Nurse practitioner note has been reviewed by physician. Signing provider agrees with the documented findings, assessment, and plan of care documented by SETTER HELPER as a scribe. Past Medical History Past Medical History: COPD, Osteoarthritis (OA) Additional Past Medical History / Comment(s): Arthritis multiple joints, recent cortisone injections in R elbow, occasional back pain. 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 Past Anesthesia/Blood Transfusion Reactions: No Reported Reaction Past Psychological History: Bipolar Past Alcohol Use History: None Reported Past Drug Use History: Marijuana - Past Family History Father Family Medical History: Diabetes Mellitus, Myocardial Infarction ([place]), Renal Disease Additional Family Medical History / Comment(s): Father is at the age of 80yrs. He had to have dialysis. He had a [place] at the age of 30yrs. Mother Family Medical History: AFIB, Diabetes Mellitus, Hypertension Additional Family Medical History / Comment(s): Mother is about 75 or 76yrs old. Medications and Allergies Home Medications Medication Instructions Recorded Confirmed Type lamoTRIgine [LaMICtal] 100 mg PO HS 12/21/17 04/17/23 History Atorvastatin [Lipitor] 20 mg PO DAILY 04/17/23 04/17/23 History Citalopram Hydrobromide [CeleXA] 20 mg PO HS 04/17/23 04/17/23 History LORazepam [Ativan] 0.5 mg PO BID PRN 04/17/23 04/17/23 History LORazepam [Ativan] 0.5 mg PO HS 04/17/23 04/17/23 History Levothyroxine Sodium [Synthroid] 125 mcg PO DAILY 04/17/23 04/17/23 History [place] Carbonate 300 mg PO HS 04/17/23 04/17/23 History QUEtiapine [SEROquel] 400 mg PO HS 04/17/23 04/17/23 History SUMAtriptan succinate [Imitrex] 100 mg PO BID PRN 04/17/23 04/17/23 History Allergies Allergy/AdvReac Type Severity Reaction Status Date / Time No Known Allergies Allergy Verified 04/17/23 20:06 Physical Exam Vitals: Vital Signs Temp Pulse Resp BP Pulse Ox 04/18/23 05:45 97.6 F 57 L 16 124/87 98 04/18/23 04:17 44 L 12 108/75 99 04/18/23 03:00 51 L 13 98/70 97 04/18/23 02:00 58 L 12 98 04/18/23 00:54 52 L 16 125/77 96 04/17/23 23:36 97.6 F 52 L 18 111/79 95 04/17/23 21:31 52 L 16 116/78 97 04/17/23 19:50 54 L 18 127/93 97 04/17/23 18:15 98.3 F 72 17 121/84 97 04/17/23 17:36 98 F 76 16 120/76 99 Intake and Output 04/17/23 04/18/23 04/18/23 22:59 06:59 14:59 Other: Weight 91.626 kg Results 04/17/23 17:48 04/17/23 17:48 Cardiac Enzymes 04/17/23 04/17/23 04/17/23 Range/Units 17:48 17:48 21:29 AST 19 (17-59) U/L Troponin I <0.012 <0.012 (0.000-0.034) ng/mL 04/18/23 Range/Units 00:37 AST (17-59) U/L Troponin I <0.012 (0.000-0.034) ng/mL Coagulation 04/17/23 Range/Units 17:48 PT 11.6 (10.0-12.5) sec APTT 25.4 (22.0-30.0) sec CBC 04/17/23 Range/Units 17:48 WBC 8.8 (3.8-10.6) k/uL RBC 4.44 (4.30-5.90) m/uL Hgb 14.3 (13.0-17.5) gm/dL Hct 41.5 (39.0-53.0) % Plt Count 251 (150-450) k/uL Comprehensive Metabolic Panel 04/17/23 Range/Units 17:48 Sodium 136 L (137-145) mmol/L Potassium 4.0 (3.5-5.1) mmol/L Chloride 105 (98-107) mmol/L Carbon Dioxide 23 (22-30) mmol/L BUN 17 (9-20) mg/dL Creatinine 1.67 H (0.66-1.25) mg/dL Glucose 131 H (74-99) mg/dL Calcium 9.1 (8.4-10.2) mg/dL AST 19 (17-59) U/L ALT 16 (4-49) U/L Alkaline Phosphatase 75 (38-126) U/L Total Protein 6.9 (6.3-8.2) g/dL Albumin 4.2 (3.5-5.0) g/dL Current Medications Generic Name Dose Route Start Last Admin Trade Name Freq PRN Reason Stop Dose Admin Aspirin 325 mg 04/18/23 09:00 Aspirin 325 Mg Tab PO DAILY [facility] Atorvastatin Calcium 20 mg 04/18/23 09:00 Atorvastatin 20 Mg Tab PO DAILY ODILIA Citalopram Hydrobromide 20 mg 04/17/23 21:00 04/17/23 21:13 Citalopram Hydrobromide 20 Mg Tab PO 20 mg HS ODILIA Administration Sodium Chloride 1,000 mls @ 75 mls/hr 04/17/23 20:30 04/17/23 21:13 Saline 0.9% IV 75 mls/hr .[id number] ODILIA Administration Lamotrigine 100 mg 04/17/23 21:00 04/17/23 21:13 Lamotrigine 100 Mg Tab PO 100 mg HS ODILIA Administration Levothyroxine Sodium 125 mcg 04/18/23 06:30 04/18/23 05:44 Levothyroxine 125 Mcg Tab PO 125 mcg DAILY@0630 ODILIA Administration [place] Carbonate 300 mg 04/17/23 21:00 04/17/23 21:27 [place] Carbonate 300 Mg Cap PO 300 mg HS ODILIA Administration Lorazepam 0.5 mg 04/17/23 20:51 Lorazepam 0.5 Mg Tab PO BID PRN Anxiety Morphine Sulfate 4 mg 04/17/23 20:21 Morphine Sulfate 4 Mg/Ml Syringe IV Q4HR PRN Severe Pain (Scale 7 to 10) Naloxone HCl 0.2 mg 04/17/23 20:21 Naloxone 0.4 Mg/Ml 1 Ml Vial IV Q2M PRN Opioid Reversal Nitroglycerin 0.4 mg 04/17/23 20:21 Nitroglycerin Sl Tabs 0.4 Mg Tab SUBLINGUAL Q5M PRN Chest Pain Ondansetron HCl 4 mg 04/17/23 20:21 Ondansetron 4 Mg/2 Ml Vial IVP Q8HR PRN Nausea And Vomiting Quetiapine Fumarate 400 mg 04/17/23 21:00 04/17/23 21:27 Quetiapine 400 Mg Tab PO 400 mg HS ODILIA Administration Sumatriptan Succinate 100 mg 04/17/23 20:51 Sumatriptan Succinate 50 Mg Tab PO BID PRN Migraine Headache Intake and Output 04/17/23 04/18/23 04/18/23 22:59 06:59 14:59 Other: Weight 91.626 kg 04/17/23 17:48 04/17/23 17:48
[2023-04-18] MEDS: SODIUM CHLORIDE 0.9% 1,000 ML IV SCH (10:09)
--- NOTE | 2023-04-18 11:24 | CA ---
Transthoracic Echo Report Name: Yessi Allen Age: 57 Gender: M : 1965 Exam Date: 04/18/2023 09:27 Exam Location: [place] [facility] Ht (in): 74 Wt (lb): 202 Ordering Physician: Scout Tillman DO Attending/Referring Phys: [id number], Layne Class C Driver Jam Alex RD Procedure CPT: Indications: CP Cardiac Hx: Technical Quality: Fair Contrast 1: Total Dose (mL): Contrast 2: Total Dose (mL): MEASUREMENTS (Male / Female) Normal Values 2D ECHO LV Diastolic Diameter PLAX 4.6 cm 4.2 - 5.9 / 3.9 - 5.3 cm LV Systolic Diameter PLAX 3.3 cm IVS Diastolic Thickness 0.8 cm 0.6 - 1.0 / 0.6 - 0.9 cm LVPW Diastolic Thickness 1.0 cm 0.6 - 1.0 / 0.6 - 0.9 cm LV Relative Wall Thickness 0.4 RV Internal Dim ED PLAX 3.3 cm LVOT Diameter 2.2 cm Aortic Root Diameter 3.5 cm LA Systolic Diameter LX 2.1 cm 3.0 - 4.0 / 2.7 - 3.8 cm LV Diastolic Volume MOD BP 81.8 cm??? 67 - 155 / 56 - 104 cm??? LV Systolic Volume MOD BP 29.7 cm??? 22 - 58 / 19 - 49 cm??? LV Ejection Fraction MOD BP 63.8 % >= 55 % LV Cardiac Index MOD BP 1187.6 cm???/min???m??? LV Diastolic Volume MOD 4C 85.5 cm??? LV Systolic Volume MOD 4C 31.7 cm??? LV Ejection Fraction MOD 4C 62.9 % LV Cardiac Index MOD 4C 1224.7 cm???/min???m??? LV Diastolic Length 4C 8.0 cm LV Systolic Length 4C 6.9 cm LV Diastolic Volume MOD 2C 76.1 cm??? LV Systolic Volume MOD 2C 27.3 cm??? LV Ejection Fraction MOD 2C 64.2 % LV Cardiac Index MOD 2C 1112.5 cm???/min???m??? LV Diastolic Length 2C 7.7 cm LV Systolic Length 2C 6.8 cm Ascending Aorta Diameter 3.5 cm DOPPLER AV Peak Velocity 101.6 cm/s AV Peak Gradient 4.1 mmHg LVOT Peak Velocity 83.2 cm/s LVOT Peak Gradient 2.8 mmHg LVOT Velocity Time Integral 17.0 cm LVOT Stroke Volume 62.0 cm??? LVOT Stroke Volume Index 28.4 ml/m??? LVOT Cardiac Index 1411.3 cm???/min???m??? AV Area Cont Eq pk 3.0 cm??? MV Peak Velocity 77.1 cm/s MV Peak Gradient 2.4 mmHg MV Mean Velocity 38.8 cm/s MV Mean Gradient 0.7 mmHg MV Velocity Time Integral 35.4 cm Mitral E Point Velocity 84.4 cm/s Mitral A Point Velocity 67.0 cm/s Mitral E to A Ratio 1.3 MV Deceleration Time 244.6 ms TR Peak Velocity 124.1 cm/s TR Peak Gradient 6.2 mmHg Right Ventricular Systolic Press 11.2 mmHg PV Peak Velocity 88.7 cm/s PV Peak Gradient 3.1 mmHg FINDINGS Left Ventricle Normal LV size and wall thickness. Left ventricular ejection fraction is estimated at 55-60 %. Right Ventricle Normal right ventricular size. Right Atrium Normal right atrial size. Left Atrium Normal left atrial size. Mitral Valve Structurally normal mitral valve. Aortic Valve Aortic valve not well visualized. No aortic stenosis. No aortic regurgitation. Tricuspid Valve Structurally normal tricuspid valve. Trace TR. Pulmonic Valve Pulmonic valve not well visualized. Trace PI. Pericardium Not well visualized. Grossly normal. Aorta Normal size aortic root and proximal ascending aorta. CONCLUSIONS Left ventricular ejection fraction is estimated at 55-60 %. No obvious regional wall motion abnormality No significant valvular dysfunction No significant chamber size abnormality No pericardial effusion Previewed by: Dr Anders Correa (Electronically Signed) Final Date: 18 April 2023 11:23
--- NOTE | 2023-04-18 12:49 | P.HPIM ---
History of Present Illness H&P Date: 04/18/23 Chief Complaint: Chest pain * 57-year-old gentleman with past medical history significant for depression, hypothyroid, dyslipidemia presents to the emergency department with complaints of chest pain that started early in the day. Patient was at his primary care office and was noted to have abnormal EKG and was requested to go to the ER for further evaluation. Patient explained chest pain as substernal, 5 x 10 in intensity associated with heaviness and chest tightness, intermittent, worsened by exertion. * Workup initiated in the ER included an EKG which showed sinus rhythm with prolonged [place] interval, ST segment changes noted in inferior lead however no ST elevated [place] noted * Troponins were ordered in ER which were negative, cardiology consulted for further evaluation * Chest x-ray obtained in ER within normal limits however hyperinflation was noted * Blood work obtained showed normal CBC, INR within normal limits serum chemistry showed sodium of 136 creatinine of 1.67 she is close to baseline REVIEW OF SYSTEMS: Chest pain CONSTITUTIONAL: No fever, no malaise, no fatigue. HEENT: No recent visual problems or hearing problems. Denied any sore throat. CARDIOVASCULAR: Chest pain PULMONARY: No shortness of breath, no cough, no hemoptysis. GASTROINTESTINAL: No diarrhea, no nausea, no vomiting, no abdominal pain. NEUROLOGICAL: No headaches, no weakness, no numbness. HEMATOLOGICAL: Denies any bleeding or petechiae. GENITOURINARY: Denies any burning micturition, frequency, or urgency. MUSCULOSKELETAL/RHEUMATOLOGICAL: Denies any joint pain, swelling, or any muscle pain. ENDOCRINE: Denies any polyuria or polydipsia. PHYSICAL EXAMINATION: GENERAL: The patient is alert and oriented x3, not in any acute distress. Well developed, well nourished. HEENT: Pupils are round and equally reacting to light. EOMI. CARDIOVASCULAR: S1 and S2 present. No murmurs, rubs, or gallops. PULMONARY: Chest is clear to auscultation, no wheezing or crackles. ABDOMEN: Soft, nontender, nondistended, normoactive bowel sounds. No palpable organomegaly. MUSCULOSKELETAL: No joint swelling or deformity. EXTREMITIES: No cyanosis, clubbing, or pedal edema. NEUROLOGICAL: Gross neurological examination did not reveal any focal deficits. Past Medical History Past Medical History: COPD, Osteoarthritis (OA) Additional Past Medical History / Comment(s): Arthritis multiple joints, recent cortisone injections in R elbow, occasional back pain. 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 Past Anesthesia/Blood Transfusion Reactions: No Reported Reaction Past Psychological History: Bipolar Past Alcohol Use History: None Reported Past Drug Use History: Marijuana - Past Family History Father Family Medical History: Diabetes Mellitus, Myocardial Infarction ([place]), Renal Disease Additional Family Medical History / Comment(s): Father is at the age of 80yrs. He had to have dialysis. He had a [place] at the age of 30yrs. Mother Family Medical History: AFIB, Diabetes Mellitus, Hypertension Additional Family Medical History / Comment(s): Mother is about 75 or 76yrs old. Medications and Allergies Home Medications Medication Instructions Recorded Confirmed Type lamoTRIgine [LaMICtal] 100 mg PO HS 12/21/17 04/17/23 History Atorvastatin [Lipitor] 20 mg PO DAILY 04/17/23 04/17/23 History Citalopram Hydrobromide [CeleXA] 20 mg PO HS 04/17/23 04/17/23 History LORazepam [Ativan] 0.5 mg PO BID PRN 04/17/23 04/17/23 History LORazepam [Ativan] 0.5 mg PO HS 04/17/23 04/17/23 History Levothyroxine Sodium [Synthroid] 125 mcg PO DAILY 04/17/23 04/17/23 History [place] Carbonate 300 mg PO HS 04/17/23 04/17/23 History QUEtiapine [SEROquel] 400 mg PO HS 04/17/23 04/17/23 History SUMAtriptan succinate [Imitrex] 100 mg PO BID PRN 04/17/23 04/17/23 History Allergies Allergy/AdvReac Type Severity Reaction Status Date / Time No Known Allergies Allergy Verified 04/17/23 20:06 Physical Exam Vitals: Vital Signs Temp Pulse Resp BP Pulse Ox 04/18/23 08:38 18 04/18/23 08:15 67 18 114/86 99 04/18/23 05:45 97.6 F 57 L 16 124/87 98 04/18/23 04:17 44 L 12 108/75 99 04/18/23 03:00 51 L 13 98/70 97 04/18/23 02:00 58 L 12 98 04/18/23 00:54 52 L 16 125/77 96 04/17/23 23:36 97.6 F 52 L 18 111/79 95 04/17/23 21:31 52 L 16 116/78 97 04/17/23 19:50 54 L 18 127/93 97 04/17/23 18:15 98.3 F 72 17 121/84 97 04/17/23 17:36 98 F 76 16 120/76 99 Intake and Output 04/17/23 04/18/23 04/18/23 22:59 06:59 14:59 Other: Weight 91.626 kg Results CBC & Chem 7: 04/17/23 17:48 04/17/23 17:48 Labs: Abnormal Lab Results - Last 24 Hours (Table) 04/17/23 04/18/23 Range/Units 17:48 00:37 Sodium 136 L (137-145) mmol/L Creatinine 1.67 H (0.66-1.25) mg/dL Glucose 131 H (74-99) mg/dL HDL Cholesterol 32.80 L (40.00-60.00) mg/dL Thrombosis Risk Factor Assmnt - DVT/VTE Prophylaxis DVT/VTE Prophylaxis: Mechanical Prophylaxis ordered Assessment and Plan Assessment: Assessment and plan * Chest pain rule out acute coronary syndrome * Hx Of hypothyroid * History of depression * In regards to chest pain, serial troponins ordered, cardiology consulted as needed EKG for chest pain,, will get stress echocardiogram * In regards to hypothyroid continue Synthyroid * In regards to history of depression continue home regimen * CODE STATUS is full code Time with Patient: Greater than 30
[2023-04-18 13:51] VITALS: RESP 16
[2023-04-18 15:19] VITALS: BP 168/98; PULSE 68
--- NOTE | 2023-04-18 17:03 | CA ---
Stress Echo Report Yessi Allen Age: 57 Gender: M : 1965 Exam Date: 04/18/2023 12:17 Exam Location: [facility] Ht (in): 74 Wt (lb): 202 Ordering Physician: Kathy Posada Referring Physician: [id number] Kiln Loader: Kari Gant RDCS Technologist Procedure CPT: Indication: CP ICD-9 Codes: Rhythm: Patient History: CHEST PAIN, ELEVATED CHOLESTEROL LEVELS, FAMILY HX OF HEART DISEASE, FORMER SMOKER, COPD Cardiac Medications: Medications in past 24 hours: Contrast: Stress Results Protocol: Liu Total dose(mL): Exercise Duration (min:sec): 8:[address] Depression (mm): Angina Score: Clemons Score: METS: 9.7 Resting HR: 60 Resting BP: 136 / 67 Peak HR: 139 Peak BP: 187 / 78 Max Predicted HR: 163 85 % Max Predicted HR Target HR: 139 Double Product: [id number] Stress Summary: BP Response: Reason for Termination: MAX EXERTION/TARGET HR Cardiac Symptoms: NO SYMPTOMS ECG Analysis Resting ECG: Normal sinus rhythm, heart rate 76 bpm Stress ECG: No significant ST-T wave changes diagnostic for ischemia Arrhythmia: No evidence of ectopic beats or sustained arrhythmias Echo Analysis Resting Echo: Normal segmental and global LV systolic function. No obvious regional wall motion abnormality Peak Echo Analysis: No stress-induced regional wall motion movement. Normal augmentation of global and segmental LV systolic function MEASUREMENTS (Male/Female) Normal Values CONCLUSIONS Fair exercise tolerance for patient's age achieving 9.7 METS Normal hemodynamic and clinical response to exercise Nonischemic ECG and echocardiographic response to exercise next Overall normal treadmill stress echo Dr Anders Correa (Electronically Signed) Final Date: 18 April 2023 17:03
[2023-04-18] MEDS ORDERED: LORazepam 0.5 MG TAB PO SCH (21:00)
[2023-04-19] MEDS ORDERED: ASPIRIN 81 MG PO SCH (09:00)
--- NOTE | 2023-04-19 16:11 | P.DS ---
Providers Date of admission: 04/17/23 20:23 Expected date of discharge: 04/18/23 Attending physician: Bailey Be Consults: 04/17/23 20:21 Consult Physician Routine Consulting Provider: Jose Guadalupe Frazier Consult Reason/Comments: cp Do you want consulting provider notified?: Yes Primary care physician: Micaela Bernardo [facility] Course: * 57-year-old gentleman with past medical history significant for depression, hypothyroid, dyslipidemia presents to the emergency department with complaints of chest pain that started early in the day. Patient was at his primary care office and was noted to have abnormal EKG and was requested to go to the ER for further evaluation. Patient explained chest pain as substernal, 5 x 10 in intensity associated with heaviness and chest tightness, intermittent, worsened by exertion. * Workup initiated in the ER included an EKG which showed sinus rhythm with prolonged [place] interval, ST segment changes noted in inferior lead however no ST elevated [place] noted * Troponins were ordered in ER which were negative, cardiology consulted for further evaluation * Chest x-ray obtained in ER within normal limits however hyperinflation was noted * Blood work obtained showed normal CBC, INR within normal limits serum chemistry showed sodium of 136 creatinine of 1.67 she is close to baseline * left AMA , Stress test and Echo ordered Assessment and plan * Chest pain rule out acute coronary syndrome * Hx Of hypothyroid * History of depression * In regards to chest pain, serial troponins ordered, cardiology consulted as needed EKG for chest pain,, stress echocardiogram completed , LEFT AMA * In regards to hypothyroid continue Synthyroid * In regards to history of depression continue home regimen Patient Condition at Discharge: Undetermined Plan - Discharge Summary New Discharge Prescriptions: No Action lamoTRIgine [LaMICtal] 100 mg PO HS Atorvastatin [Lipitor] 20 mg PO DAILY LORazepam [Ativan] 0.5 mg PO HS LORazepam [Ativan] 0.5 mg PO BID PRN PRN Reason: Anxiety Citalopram Hydrobromide [CeleXA] 20 mg PO HS Levothyroxine Sodium [Synthroid] 125 mcg PO DAILY QUEtiapine [SEROquel] 400 mg PO HS [place] Carbonate 300 mg PO HS SUMAtriptan succinate [Imitrex] 100 mg PO BID PRN PRN Reason: Migraine Headache Discharge Medication List lamoTRIgine [LaMICtal] 100 mg PO HS 12/21/17 [History] Atorvastatin [Lipitor] 20 mg PO DAILY 04/17/23 [History] Citalopram Hydrobromide [CeleXA] 20 mg PO HS 04/17/23 [History] LORazepam [Ativan] 0.5 mg PO BID PRN 04/17/23 [History] LORazepam [Ativan] 0.5 mg PO HS 04/17/23 [History] Levothyroxine Sodium [Synthroid] 125 mcg PO DAILY 04/17/23 [History] [place] Carbonate 300 mg PO HS 04/17/23 [History] QUEtiapine [SEROquel] 400 mg PO HS 04/17/23 [History] SUMAtriptan succinate [Imitrex] 100 mg PO BID PRN 04/17/23 [History] Follow up Appointment(s)/Referral(s): Micaela Bernardo MD [Primary Care Provider] - 1-2 days Discharge Disposition: LEFT AGAINST MEDICAL ADVICE
== END 2023-04-18 15:20 | disposition left against medical advice (07) ==
LOC: EC 17:30 → 6NMEDSUR 20:23
PROVIDERS: ADMIT Hospitalist; ATTEND Hospitalist
DX: R07.9 Chest pain, unspecified (principal); E78.00 Pure hypercholesterolemia, unspecified; J44.9 Chronic obstructive pulmonary disease, unspecified; F31.9 Bipolar disorder, unspecified; N18.9 Chronic kidney disease, unspecified; F12.90 Cannabis use, unspecified, uncomplicated; E03.9 Hypothyroidism, unspecified; Z87.891 Personal history of nicotine dependence; Z79.890 Hormone replacement therapy; Z79.899 Other long term (current) drug therapy; Z82.49 Family history of ischemic heart disease and other diseases of the circulatory system; Z53.29 Procedure and treatment not carried out because of patient's decision for other reasons
CPT/HCPCS: 99285; 36415; 93005 ×2; 93306; 93351; 80061; 80053; 83735; 84484 ×2; 85025; 85610; 85730; 71046; G0378 ×2